=== PATIENT | male | born 1965 | race Caucasian/White ===

== ENCOUNTER 2019-11-01 16:17 | Emergency (ER) | payer BC ==
--- NOTE | 2019-11-01 16:36 | UC ---
Eye Complaint HPI - HPI Summary HPI Summary: 54 yo male presents with visual changes. He tells me that for the past 2 weeks he notices trouble focusing upon waking first thing in the morning and for seconds intermittently throughout the day. He describes it that when he wakes up in the morning he will grab his cell phone and it will take him a few seconds to focus on the letters and words on the phone - has to move the phone closer and further to focus. He does have reading glasses, but states these do not make a difference. Symptoms resolve in less than 30-60seconds and happen 2- 3 times throughout the day while at work. He does not notice this at night. Not accompanied by any headaches, dizziness, pain, SOB, chest pain/palpitations, n/v , numbness, or tingling. He had an eye exam from his eye doctor about a month ago and states it was normal. He does mention that about 1 month ago he had a unilateral headache above his right eye that lasted about 2 weeks straight and resolved on it's own. He notes this was abnormal for him as he does not get headaches. Was not accompanied by any dizziness, pain, SOB, chest pain/palpitations, numbness, or tingling, n/v. He has a history of two CVAs. One was around age 15 due to a trauma - pt states this was not found or treated at that time. 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 He states no residual side effects from these. He has not seen a neurologist in many years. - History of Current Complaint Stated Complaint: EYE ISSUE, UNABLE TO FOCUS Time Seen by Provider: 11/01/19 16:36 Hx Obtained From: Patient Onset/Duration: Sudden Onset Timing: Intermittent Episode Lasting - seconds Severity Currently: None - Allergies/Home Medications Allergies/Adverse Reactions: Allergies Allergy/AdvReac Type Severity Reaction Status Date / Time No Known Allergies Allergy Verified 11/01/19 16:36 PMH/Surg Hx/FS Hx/Imm Hx - Additional Past Medical History Additional PMH: CVA 25+ years ago Seasonal allergies - Surgical History Surgical History: None - Social History Alcohol Use: Weekly Substance Use Type: None Smoking Status (MU): Never Smoked Tobacco Review of Systems All Other Systems Reviewed And Are Negative: No Constitutional: Positive: Negative Skin: Positive: Negative Eyes: Positive: Blurred Vision ENT: Positive: Negative Respiratory: Positive: Negative Cardiovascular: Positive: Negative Gastrointestinal: Positive: Negative Genitourinary: Positive: Negative Motor: Positive: Negative Neurovascular: Positive: Negative Musculoskeletal: Positive: Negative Neurological: Positive: Negative Psychological: Positive: Negative Physical Exam - Summary Physical Exam Summary: GENERAL: NAD. WDWN. No pain distress. SKIN: No rashes, sores, ulcers, masses, lesions. HEENT: Head: AT/NC. Eyes: PERRLA. EOM intact. Conjunctiva clear without inflammation or discharge. Ears: Hearing grossly normal. TMs intact, no bulging, erythema, or edema. Nose: Nasal mucosa pink and moist. NTTP maxillary and frontal sinus. Throat: Posterior oropharynx without exudates, erythema, or tonsillar enlargement. Uvula midline. NECK: Supple. Nontender. FROM CHEST: CTAB. No r/r/w. No accessory muscle use. Breathing comfortably and in no distress. CV: RRR. Pulses intact. Brisk cap refill. ABDOMEN: Soft. NTTP. Bowel sounds present MSK: FROM in B/L UEs and LEs with symmetric strength. NEURO: A&Ox3. 3 word recall, remote, recent memory, ability to follow 2-step directions, and attention intact. CN: II: Peripheral bridges intact. Vision normal. III, IV, : EOMI. No nystagmus. PERRLA. V: Sensations intact and symmetric. Opens mouth and clenches teeth. VII: No facial asymmetry. Forehead wrinkles. Grins, shuts eyes, frowns, puffs cheeks. VIII: Hearing intact to finger rub. IX, X: Swallows and coughs. Uvula midline. XI: Shrugs shoulders. Turns head against resistance. XII: No tongue deviation [id number] are intact. Gait with normal base. Romberg: maintains balance, no pronator drift. Normal speech. No facial drooping. PSYCH: Age appropriate behavior. Triage Information Reviewed: Yes Vital Signs: Vital Signs: Temp Pulse Resp BP Pulse Ox 98.7 F 61 18 147/75 98 11/01/19 16:36 11/01/19 16:36 11/01/19 16:36 11/01/19 16:36 11/01/19 16:36 Laboratory Tests 11/01/19 16:55 POC Glucose (mg/dL) 74 Vital Signs Reviewed: Yes Eye Complaint Course/Dx - Course Course Of Treatment: POC glucose 74. Right eye 20/20. Left eye 20/30. His exam is WNL. I called Dr. Cat of neurology and he recommends outpatient MRI within the next week or two. If pt develops any neurologic deficits to call 911 or go to the ED immediately. I had a long discussion with the pt about this and made him aware that if he develops any headache, dizziness, weakness, numbness, tingling, SOB, chest pain , n/v, or worsening symptoms to go to the ED immediately. He voiced understanding. Will refer him to Dr. Long of neurology. Pt agreeable with the plan. - Differential Dx/Diagnosis Provider Diagnosis: Blurry vision Discharge ED - Sign-Out/Discharge Documenting (check all that apply): Patient Departure All imaging exams completed and their final reports reviewed: No Studies - Discharge Plan Condition: Stable Disposition: HOME Referrals: Vasile Long MD [Medical Doctor] - Jag Peralta MD [Medical Doctor] - Thanh Orozco MD [Primary Care Provider] - Additional Instructions: Your blood pressure was slightly elevated at todays visit. Please see your primary provider within 4 weeks for recheck and re-evaluation. I spoke to Dr. Cat, one of our neurologists, and he recommends being seen by a neurologist outpatient within the next week or two for a likely MRI. --- Please call Dr. Long at the number below to schedule an appointment. If you develop worsening symptoms, headache, dizziness, numbness, tingling, weakness, trouble speaking/thinking/concentrating, or nausea/vomiting - please call 911 or go to the ER immediately. - Billing Disposition and Condition Condition: STABLE Disposition: Home - Attestation Statements Provider Attestation: Per institutional requirements, I have reviewed the chart, however, I was not consulted specifically or made aware of this patient by the midlevel provider. I did not personally evaluate, interact with , or disposition this patie
[2019-11-01 16:44] VITALS: BP 147/75
== END 2019-11-01 17:17 | disposition home or self-care (01) ==
LOC: UCEAST 16:17
DX: H53.8 Other visual disturbances (principal); Z86.69 Personal history of other diseases of the nervous system and sense organs
CPT/HCPCS: 99211; G0463